=== PATIENT | male | born 1955 | race Caucasian/White ===

== ENCOUNTER → 2016-12-27 | Outpatient (CLI) | payer MEDICARE, OTHER ==
[~2016-12-27] MED LIST: AMLO-512 PO; ASPI-556 PO; ATOR40TA28 PO; DEXT30DR5 OP; FOLI1 PO; GABA-531 PO; HYDR25 PO; HYDR25TA PO; INSLAN SQ; INSU100C6 SQ; LISI-662 PO; METF500T4 PO; MULT-959 PO; PENI500T2 PO; TIMO5DRO35 OS; TRAM50TA4 PO; VITA-300 PO; [UNRECOGNIZED DRUG - OTHER] PO
[2016-12-27 10:34] VITALS: BP 99/66
== END | disposition home or self-care (01) ==
LOC: HBOWC 10:01
PROVIDERS: ATTEND Emergency Medicine
DX: E11.621 Type 2 diabetes mellitus with foot ulcer (principal); L97.411 Non-pressure chronic ulcer of right heel and midfoot limited to breakdown of skin; E11.622 Type 2 diabetes mellitus with other skin ulcer; L97.921 Non-pressure chronic ulcer of unspecified part of left lower leg limited to breakdown of skin; E11.51 Type 2 diabetes mellitus with diabetic peripheral angiopathy without gangrene; I12.9 Hypertensive chronic kidney disease with stage 1 through stage 4 chronic kidney disease, or unspecified chronic kidney disease; N18.4 Chronic kidney disease, stage 4 (severe); E11.69 Type 2 diabetes mellitus with other specified complication; M86.8X7 Other osteomyelitis, ankle and foot
CPT/HCPCS: 97597

== ENCOUNTER → 2017-02-02 | Outpatient (CLI) | payer MEDICARE, OTHER ==
[2017-02-02 12:35] VITALS: BP 147/77
== END | disposition home or self-care (01) ==
LOC: HBOWC 11:00
PROVIDERS: ATTEND Emergency Medicine
DX: E11.621 Type 2 diabetes mellitus with foot ulcer (principal); L97.411 Non-pressure chronic ulcer of right heel and midfoot limited to breakdown of skin; E11.69 Type 2 diabetes mellitus with other specified complication; M86.8X7 Other osteomyelitis, ankle and foot; E11.65 Type 2 diabetes mellitus with hyperglycemia; I10 Essential (primary) hypertension; E11.22 Type 2 diabetes mellitus with diabetic chronic kidney disease; I12.9 Hypertensive chronic kidney disease with stage 1 through stage 4 chronic kidney disease, or unspecified chronic kidney disease; N18.9 Chronic kidney disease, unspecified; E11.51 Type 2 diabetes mellitus with diabetic peripheral angiopathy without gangrene
CPT/HCPCS: 97597

== ENCOUNTER → 2017-02-17 | Outpatient (CLI) | payer MEDICARE, OTHER ==
[2017-02-17 11:33] VITALS: BP 114/56
== END | disposition home or self-care (01) ==
LOC: HBOWC 11:07
PROVIDERS: ATTEND Emergency Medicine
DX: E11.621 Type 2 diabetes mellitus with foot ulcer (principal); L97.411 Non-pressure chronic ulcer of right heel and midfoot limited to breakdown of skin; E11.69 Type 2 diabetes mellitus with other specified complication; M86.671 Other chronic osteomyelitis, right ankle and foot; I12.9 Hypertensive chronic kidney disease with stage 1 through stage 4 chronic kidney disease, or unspecified chronic kidney disease; E11.22 Type 2 diabetes mellitus with diabetic chronic kidney disease; E11.51 Type 2 diabetes mellitus with diabetic peripheral angiopathy without gangrene; N18.4 Chronic kidney disease, stage 4 (severe)
CPT/HCPCS: 97597

== ENCOUNTER → 2017-03-03 | Outpatient (CLI) | payer MEDICARE, OTHER ==
[~2017-03-03] MED LIST changes: -HYDR25 PO; +HYDR25TA84 PO
[2017-03-03 11:14] VITALS: BP 111/56
== END | disposition home or self-care (01) ==
LOC: HBOWC 10:54
PROVIDERS: ATTEND Emergency Medicine
DX: E11.621 Type 2 diabetes mellitus with foot ulcer (principal); L97.411 Non-pressure chronic ulcer of right heel and midfoot limited to breakdown of skin; E11.69 Type 2 diabetes mellitus with other specified complication; M86.671 Other chronic osteomyelitis, right ankle and foot; E11.22 Type 2 diabetes mellitus with diabetic chronic kidney disease; I12.9 Hypertensive chronic kidney disease with stage 1 through stage 4 chronic kidney disease, or unspecified chronic kidney disease; N18.4 Chronic kidney disease, stage 4 (severe); E11.51 Type 2 diabetes mellitus with diabetic peripheral angiopathy without gangrene
CPT/HCPCS: 97597

== ENCOUNTER → 2017-03-28 | Outpatient (CLI) | payer MEDICARE, OTHER ==
[2017-03-28 11:06] VITALS: BP 152/93
== END | disposition home or self-care (01) ==
LOC: HBOWC 10:48
PROVIDERS: ATTEND Emergency Medicine
DX: E11.621 Type 2 diabetes mellitus with foot ulcer (principal); L97.511 Non-pressure chronic ulcer of other part of right foot limited to breakdown of skin; E11.69 Type 2 diabetes mellitus with other specified complication; M86.671 Other chronic osteomyelitis, right ankle and foot; E11.51 Type 2 diabetes mellitus with diabetic peripheral angiopathy without gangrene; E11.22 Type 2 diabetes mellitus with diabetic chronic kidney disease; I12.9 Hypertensive chronic kidney disease with stage 1 through stage 4 chronic kidney disease, or unspecified chronic kidney disease; N18.4 Chronic kidney disease, stage 4 (severe)
CPT/HCPCS: 97597

== ENCOUNTER → 2017-04-11 | Outpatient (CLI) | payer MEDICARE, OTHER ==
[2017-04-11 12:18] VITALS: BP 161/94
== END | disposition home or self-care (01) ==
LOC: HBOWC 10:50
PROVIDERS: ATTEND Emergency Medicine
DX: E11.621 Type 2 diabetes mellitus with foot ulcer (principal); L97.511 Non-pressure chronic ulcer of other part of right foot limited to breakdown of skin; E11.69 Type 2 diabetes mellitus with other specified complication; M86.671 Other chronic osteomyelitis, right ankle and foot; E11.22 Type 2 diabetes mellitus with diabetic chronic kidney disease; I12.9 Hypertensive chronic kidney disease with stage 1 through stage 4 chronic kidney disease, or unspecified chronic kidney disease; N18.4 Chronic kidney disease, stage 4 (severe); E11.51 Type 2 diabetes mellitus with diabetic peripheral angiopathy without gangrene
CPT/HCPCS: 97597

== ENCOUNTER → 2017-04-26 | Outpatient (CLI) | payer MEDICARE, OTHER ==
[2017-04-26 11:38] VITALS: BP 165/92
[2017-04-26 12:13] VITALS: BP 158/86
== END | disposition home or self-care (01) ==
LOC: HBOWC 11:31
PROVIDERS: ATTEND Emergency Medicine Undersea and Hyperbaric Medicine
DX: E11.621 Type 2 diabetes mellitus with foot ulcer (principal); L97.412 Non-pressure chronic ulcer of right heel and midfoot with fat layer exposed; E11.51 Type 2 diabetes mellitus with diabetic peripheral angiopathy without gangrene; E11.69 Type 2 diabetes mellitus with other specified complication; M86.8X7 Other osteomyelitis, ankle and foot; E11.22 Type 2 diabetes mellitus with diabetic chronic kidney disease; I12.9 Hypertensive chronic kidney disease with stage 1 through stage 4 chronic kidney disease, or unspecified chronic kidney disease; N18.4 Chronic kidney disease, stage 4 (severe)
CPT/HCPCS: 97597

== ENCOUNTER → 2017-05-10 | Outpatient (CLI) | payer MEDICARE, OTHER ==
[~2017-05-10] MED LIST changes: +HYDR25 PO; -HYDR25TA84 PO
[2017-05-10 14:24] VITALS: BP 120/62
== END | disposition home or self-care (01) ==
LOC: HBOWC 11:00
PROVIDERS: ATTEND Emergency Medicine
DX: E11.621 Type 2 diabetes mellitus with foot ulcer (principal); L97.412 Non-pressure chronic ulcer of right heel and midfoot with fat layer exposed; E11.51 Type 2 diabetes mellitus with diabetic peripheral angiopathy without gangrene; E11.22 Type 2 diabetes mellitus with diabetic chronic kidney disease; I12.9 Hypertensive chronic kidney disease with stage 1 through stage 4 chronic kidney disease, or unspecified chronic kidney disease; N18.4 Chronic kidney disease, stage 4 (severe); E11.69 Type 2 diabetes mellitus with other specified complication; M86.8X7 Other osteomyelitis, ankle and foot
CPT/HCPCS: 97597

== ENCOUNTER → 2017-05-24 | Outpatient (CLI) | payer MEDICARE, OTHER ==
[~2017-05-24] MED LIST changes: -HYDR25 PO; +HYDR25TA84 PO
[2017-05-24 11:57] VITALS: BP 152/82
== END | disposition home or self-care (01) ==
LOC: HBOWC 11:18
PROVIDERS: ATTEND Emergency Medicine
DX: E11.621 Type 2 diabetes mellitus with foot ulcer (principal); L97.421 Non-pressure chronic ulcer of left heel and midfoot limited to breakdown of skin; L97.411 Non-pressure chronic ulcer of right heel and midfoot limited to breakdown of skin; E11.51 Type 2 diabetes mellitus with diabetic peripheral angiopathy without gangrene; E11.69 Type 2 diabetes mellitus with other specified complication; M86.671 Other chronic osteomyelitis, right ankle and foot; E11.22 Type 2 diabetes mellitus with diabetic chronic kidney disease; I12.9 Hypertensive chronic kidney disease with stage 1 through stage 4 chronic kidney disease, or unspecified chronic kidney disease; N18.4 Chronic kidney disease, stage 4 (severe)
CPT/HCPCS: 97597

== ENCOUNTER → 2017-06-07 | Outpatient (CLI) | payer MEDICARE, OTHER ==
[~2017-06-07] MED LIST changes: +LIDOCAINE HCL 2% 5 ML JELLY TP ONE
[2017-06-07 12:20] VITALS: BP 162/91
== END | disposition home or self-care (01) ==
LOC: HBOWC 10:50
PROVIDERS: ATTEND Emergency Medicine
DX: E11.621 Type 2 diabetes mellitus with foot ulcer (principal); L97.411 Non-pressure chronic ulcer of right heel and midfoot limited to breakdown of skin; E11.69 Type 2 diabetes mellitus with other specified complication; E11.622 Type 2 diabetes mellitus with other skin ulcer; L97.321 Non-pressure chronic ulcer of left ankle limited to breakdown of skin; E11.22 Type 2 diabetes mellitus with diabetic chronic kidney disease; I12.9 Hypertensive chronic kidney disease with stage 1 through stage 4 chronic kidney disease, or unspecified chronic kidney disease; N18.4 Chronic kidney disease, stage 4 (severe); M86.671 Other chronic osteomyelitis, right ankle and foot; E11.51 Type 2 diabetes mellitus with diabetic peripheral angiopathy without gangrene
CPT/HCPCS: 97597

== ENCOUNTER → 2017-06-28 | Outpatient (CLI) | payer MEDICARE, OTHER ==
[~2017-06-28] MED LIST changes: +NYSTATIN 15 GM POWDER BOTTLE TP ONE
[2017-06-28 12:04] VITALS: BP 171/90
== END | disposition home or self-care (01) ==
LOC: HBOWC 11:28
PROVIDERS: ATTEND Emergency Medicine
DX: E11.621 Type 2 diabetes mellitus with foot ulcer (principal); L97.412 Non-pressure chronic ulcer of right heel and midfoot with fat layer exposed; E11.622 Type 2 diabetes mellitus with other skin ulcer; L97.321 Non-pressure chronic ulcer of left ankle limited to breakdown of skin; E11.22 Type 2 diabetes mellitus with diabetic chronic kidney disease; I12.9 Hypertensive chronic kidney disease with stage 1 through stage 4 chronic kidney disease, or unspecified chronic kidney disease; N18.4 Chronic kidney disease, stage 4 (severe); E11.69 Type 2 diabetes mellitus with other specified complication; M86.671 Other chronic osteomyelitis, right ankle and foot; E11.51 Type 2 diabetes mellitus with diabetic peripheral angiopathy without gangrene
CPT/HCPCS: 97597

== ENCOUNTER → 2017-10-19 | Outpatient (CLI) | payer MEDICARE, OTHER ==
[~2017-10-19] VITALS: Ht 188 cm; Wt 67.0 kg
[~2017-10-19] MED LIST changes: +ACET-784 PO; +AMLO2.5T PO; +ATOR20TA86 PO; +AUD NEB; +CEPH500 PO; +DOXY100C PO; +DSS100 PO; +FURO20 PO; +GABA-529 PO; +LORA1TAB3 PO; +LUBI24CA2 PO; -NYSTATIN 15 GM POWDER BOTTLE TP ONE; +ONDA4 PO; +PANT40TA25 PO; +PYRI50 PO; +TAMS0.4C32 PO; +[UNRECOGNIZED DRUG - CODE] SQ
[2017-10-19 10:42] VITALS: BP 156/90
== END | disposition home or self-care (01) ==
LOC: HBOWC 09:06
PROVIDERS: ATTEND Internal Medicine
DX: E11.621 Type 2 diabetes mellitus with foot ulcer (principal); L97.411 Non-pressure chronic ulcer of right heel and midfoot limited to breakdown of skin; L97.421 Non-pressure chronic ulcer of left heel and midfoot limited to breakdown of skin; E11.622 Type 2 diabetes mellitus with other skin ulcer; L97.821 Non-pressure chronic ulcer of other part of left lower leg limited to breakdown of skin; L97.811 Non-pressure chronic ulcer of other part of right lower leg limited to breakdown of skin; E11.51 Type 2 diabetes mellitus with diabetic peripheral angiopathy without gangrene; E11.22 Type 2 diabetes mellitus with diabetic chronic kidney disease; I13.0 Hypertensive heart and chronic kidney disease with heart failure and stage 1 through stage 4 chronic kidney disease, or unspecified chronic kidney disease; N18.4 Chronic kidney disease, stage 4 (severe); I50.9 Heart failure, unspecified; J44.9 Chronic obstructive pulmonary disease, unspecified; E11.69 Type 2 diabetes mellitus with other specified complication; M86.671 Other chronic osteomyelitis, right ankle and foot; E78.00 Pure hypercholesterolemia, unspecified; H54.7 Unspecified visual loss; Z79.4 Long term (current) use of insulin; Z99.2 Dependence on renal dialysis
CPT/HCPCS: 11042

== ENCOUNTER → 2017-10-26 | Outpatient (CLI) | payer MEDICARE, OTHER ==
[~2017-10-26] MED LIST changes: -AMLO-512 PO; -ASPI-556 PO; -ATOR40TA28 PO; -CEPH500 PO; -DEXT30DR5 OP; -DOXY100C PO; -GABA-531 PO; -HYDR25TA84 PO; -LISI-662 PO; -METF500T4 PO; -PENI500T2 PO; -TIMO5DRO35 OS; -TRAM50TA4 PO; -[UNRECOGNIZED DRUG - OTHER] PO
[2017-10-26 13:36] VITALS: BP 186/90
[2017-10-26 14:12] VITALS: BP 188/96
== END | disposition home or self-care (01) ==
LOC: HBOWC 11:57
PROVIDERS: ATTEND Internal Medicine
DX: T81.89XD Other complications of procedures, not elsewhere classified, subsequent encounter (principal); E11.621 Type 2 diabetes mellitus with foot ulcer; L97.411 Non-pressure chronic ulcer of right heel and midfoot limited to breakdown of skin; E11.51 Type 2 diabetes mellitus with diabetic peripheral angiopathy without gangrene; E11.22 Type 2 diabetes mellitus with diabetic chronic kidney disease; I12.9 Hypertensive chronic kidney disease with stage 1 through stage 4 chronic kidney disease, or unspecified chronic kidney disease; N18.4 Chronic kidney disease, stage 4 (severe); E11.69 Type 2 diabetes mellitus with other specified complication; M86.671 Other chronic osteomyelitis, right ankle and foot; Z86.14 Personal history of Methicillin resistant Staphylococcus aureus infection; Y83.8 Other surgical procedures as the cause of abnormal reaction of the patient, or of later complication, without mention of misadventure at the time of the procedure
CPT/HCPCS: 11042

== ENCOUNTER → 2017-11-02 | Outpatient (CLI) | payer MEDICARE, OTHER ==
[~2017-11-02] MED LIST changes: +CEPH500 PO; +DOXY100C PO; -LIDOCAINE HCL 2% 5 ML JELLY TP ONE
[2017-11-02 10:00] VITALS: BP 191/99
[2017-11-02 10:30] VITALS: BP 182/99
== END | disposition home or self-care (01) ==
LOC: HBOWC 09:14
PROVIDERS: ATTEND Internal Medicine
DX: T81.89XD Other complications of procedures, not elsewhere classified, subsequent encounter (principal); E11.621 Type 2 diabetes mellitus with foot ulcer; L97.421 Non-pressure chronic ulcer of left heel and midfoot limited to breakdown of skin; E11.622 Type 2 diabetes mellitus with other skin ulcer; L97.811 Non-pressure chronic ulcer of other part of right lower leg limited to breakdown of skin; L97.822 Non-pressure chronic ulcer of other part of left lower leg with fat layer exposed; E11.52 Type 2 diabetes mellitus with diabetic peripheral angiopathy with gangrene; E11.319 Type 2 diabetes mellitus with unspecified diabetic retinopathy without macular edema; J44.9 Chronic obstructive pulmonary disease, unspecified; E11.22 Type 2 diabetes mellitus with diabetic chronic kidney disease; I13.0 Hypertensive heart and chronic kidney disease with heart failure and stage 1 through stage 4 chronic kidney disease, or unspecified chronic kidney disease; N18.4 Chronic kidney disease, stage 4 (severe); I50.9 Heart failure, unspecified; E11.69 Type 2 diabetes mellitus with other specified complication; M86.671 Other chronic osteomyelitis, right ankle and foot; E78.00 Pure hypercholesterolemia, unspecified; H54.7 Unspecified visual loss; Z79.4 Long term (current) use of insulin; Z99.2 Dependence on renal dialysis; Y83.8 Other surgical procedures as the cause of abnormal reaction of the patient, or of later complication, without mention of misadventure at the time of the procedure
CPT/HCPCS: 11042

== ENCOUNTER → 2017-11-16 | Outpatient (CLI) | payer MEDICARE, OTHER ==
[~2017-11-16] MED LIST changes: -CEPH500 PO; -DOXY100C PO
[2017-11-16 09:40] VITALS: BP 157/88
== END | disposition home or self-care (01) ==
LOC: HBOWC 09:01
PROVIDERS: ATTEND Internal Medicine
DX: E11.621 Type 2 diabetes mellitus with foot ulcer (principal); L97.411 Non-pressure chronic ulcer of right heel and midfoot limited to breakdown of skin; L97.421 Non-pressure chronic ulcer of left heel and midfoot limited to breakdown of skin; E11.622 Type 2 diabetes mellitus with other skin ulcer; L97.821 Non-pressure chronic ulcer of other part of left lower leg limited to breakdown of skin; L97.811 Non-pressure chronic ulcer of other part of right lower leg limited to breakdown of skin; E11.69 Type 2 diabetes mellitus with other specified complication; M86.671 Other chronic osteomyelitis, right ankle and foot; E11.51 Type 2 diabetes mellitus with diabetic peripheral angiopathy without gangrene; E11.22 Type 2 diabetes mellitus with diabetic chronic kidney disease; I12.9 Hypertensive chronic kidney disease with stage 1 through stage 4 chronic kidney disease, or unspecified chronic kidney disease; N18.4 Chronic kidney disease, stage 4 (severe); H54.7 Unspecified visual loss; D64.9 Anemia, unspecified
CPT/HCPCS: 11042; 97597; 97598

== ENCOUNTER → 2017-11-23 | Outpatient (CLI) | payer MEDICARE, OTHER ==
[2017-11-23 09:11] VITALS: BP 196/97
== END | disposition home or self-care (01) ==
LOC: HBOWC 08:40
PROVIDERS: ATTEND Internal Medicine
DX: E11.621 Type 2 diabetes mellitus with foot ulcer (principal); L97.421 Non-pressure chronic ulcer of left heel and midfoot limited to breakdown of skin; E11.622 Type 2 diabetes mellitus with other skin ulcer; E11.51 Type 2 diabetes mellitus with diabetic peripheral angiopathy without gangrene; L97.821 Non-pressure chronic ulcer of other part of left lower leg limited to breakdown of skin; L97.811 Non-pressure chronic ulcer of other part of right lower leg limited to breakdown of skin; E11.22 Type 2 diabetes mellitus with diabetic chronic kidney disease; I12.9 Hypertensive chronic kidney disease with stage 1 through stage 4 chronic kidney disease, or unspecified chronic kidney disease; N18.4 Chronic kidney disease, stage 4 (severe); E11.69 Type 2 diabetes mellitus with other specified complication; M86.671 Other chronic osteomyelitis, right ankle and foot
CPT/HCPCS: 11042; 11045

== ENCOUNTER → 2017-11-30 | Outpatient (CLI) | payer MEDICARE, OTHER ==
[~2017-11-30] MED LIST changes: +LIDOCAINE HCL 2% 5 ML JELLY TP ONE
[2017-11-30 14:00] VITALS: BP 158/84
== END | disposition home or self-care (01) ==
LOC: HBOWC 13:05
PROVIDERS: ATTEND Internal Medicine
DX: E11.622 Type 2 diabetes mellitus with other skin ulcer (principal); L97.821 Non-pressure chronic ulcer of other part of left lower leg limited to breakdown of skin; L97.811 Non-pressure chronic ulcer of other part of right lower leg limited to breakdown of skin; J44.9 Chronic obstructive pulmonary disease, unspecified; E11.51 Type 2 diabetes mellitus with diabetic peripheral angiopathy without gangrene; E11.69 Type 2 diabetes mellitus with other specified complication; M86.68 Other chronic osteomyelitis, other site
CPT/HCPCS: 11042; 11045

== ENCOUNTER 2017-12-14 11:39 | Emergency (ER) | payer MEDICARE, OTHER ==
[~2017-12-14] VITALS: Ht 188 cm; Wt 78.6 kg
[~2017-12-14 11:39] MED LIST changes: -LIDOCAINE HCL 2% 5 ML JELLY TP ONE
[2017-12-14 12:28] LABS: GLUCOSE,POINT OF CARE 118 MG/DL (70-110)
[2017-12-14 15:10] LABS: BASOPHILS # (AUTO) 0.04 K/uL (0.00-0.20); BASOPHILS % (AUTO) 0.3 % (0.0-2.0); EOSINOPHILS % (AUTO) 0.77 % (1.0-6.0); HEMATOCRIT 30.8 % (41-53); HEMOGLOBIN 10.2 g/dL (13.5-17.5); LYMPHOCYTES # (AUTO) 1.3 K/uL (1.0-4.8); LYMPHOCYTES % (AUTO) 9.9 % (22.0-44.0); MEAN CORPUSCULAR HEMOGLOBIN 27.3 pg (26.0-34.0); MEAN CORPUSCULAR VOLUME 83 fL (80-100); MONOCYTES # (AUTO) 1.1 K/uL (0.1-1.0); MONOCYTES % (AUTO) 8.1 % (2.0-9.0); NEUTROPHILS # (AUTO) 10.9 K/uL (1.8-7.7); PLATELET COUNT (AUTO) 301 K/uL (150-450); RED BLOOD CELL COUNT(AUTO) 3.73 MIL/uL (4.50-5.90); RED CELL DISTRIBUTION WIDTH 16.2 % (11.5-14.5)
[2017-12-14 15:22] LABS: CALCIUM, TOTAL 8.2 mg/dL (8.8-10.5); CREATININE 3.6 mg/dL (0.60-1.30); POTASSIUM 3.6 mmol/L (3.5-5.1)
[2017-12-14 15:25] LABS: ALBUMIN 1.7 g/dL (3.4-5.0); BILIRUBIN,TOTAL 0.3 mg/dL (0.1-1.0); TOTAL PROTEIN, SERUM 6.9 g/dL (6.4-8.2)
[2017-12-14] MEDS ORDERED: SULFAMETHOX/TRIMETH DS 800-160 MG/TABLET PO ONE (15:30)
[2017-12-14] MEDS ORDERED: CeFAZolin 1 GM/DEXTROSE 50 ML IV ONE (15:30)
[2017-12-14 16:00] VITALS: BP 122/78
== END 2017-12-14 17:37 | disposition home or self-care (01) ==
LOC: EMS 11:41
DX: S91.302D Unspecified open wound, left foot, subsequent encounter (principal); L08.9 Local infection of the skin and subcutaneous tissue, unspecified; L03.116 Cellulitis of left lower limb; I12.9 Hypertensive chronic kidney disease with stage 1 through stage 4 chronic kidney disease, or unspecified chronic kidney disease; E11.22 Type 2 diabetes mellitus with diabetic chronic kidney disease; N18.9 Chronic kidney disease, unspecified; E78.00 Pure hypercholesterolemia, unspecified; Z79.4 Long term (current) use of insulin; X58.XXXD Exposure to other specified factors, subsequent encounter
CPT/HCPCS: 36415; 80053; 82962; 85025; 87070; 87077; 87186; 87205; 96365; 99284; J0690

== ENCOUNTER → 2017-12-14 | Outpatient (CLI) | payer MEDICARE, OTHER ==
[2017-12-14 10:13] VITALS: BP 159/90
== END | disposition home or self-care (01) ==
LOC: HBOWC 09:35
PROVIDERS: ATTEND Internal Medicine
DX: E11.621 Type 2 diabetes mellitus with foot ulcer (principal); L97.411 Non-pressure chronic ulcer of right heel and midfoot limited to breakdown of skin; L97.421 Non-pressure chronic ulcer of left heel and midfoot limited to breakdown of skin; L89.629 Pressure ulcer of left heel, unspecified stage; J44.9 Chronic obstructive pulmonary disease, unspecified; E11.69 Type 2 diabetes mellitus with other specified complication; M86.671 Other chronic osteomyelitis, right ankle and foot; M86.68 Other chronic osteomyelitis, other site; E11.51 Type 2 diabetes mellitus with diabetic peripheral angiopathy without gangrene; E11.22 Type 2 diabetes mellitus with diabetic chronic kidney disease; I12.9 Hypertensive chronic kidney disease with stage 1 through stage 4 chronic kidney disease, or unspecified chronic kidney disease; N18.4 Chronic kidney disease, stage 4 (severe)
CPT/HCPCS: 11042; 11045

== ENCOUNTER → 2017-12-28 | Outpatient (CLI) | payer MEDICARE, OTHER ==
[~2017-12-28] MED LIST changes: +CEPH500 PO; +DOXY100C PO; +LIDOCAINE HCL 4% 50 ML SOLUTION TP ONE
[2017-12-28 11:31] VITALS: BP 179/90
== END | disposition home or self-care (01) ==
LOC: HBOWC 09:19
PROVIDERS: ATTEND Internal Medicine
DX: E11.622 Type 2 diabetes mellitus with other skin ulcer (principal); L97.821 Non-pressure chronic ulcer of other part of left lower leg limited to breakdown of skin; L97.811 Non-pressure chronic ulcer of other part of right lower leg limited to breakdown of skin; L97.421 Non-pressure chronic ulcer of left heel and midfoot limited to breakdown of skin; E11.22 Type 2 diabetes mellitus with diabetic chronic kidney disease; E11.51 Type 2 diabetes mellitus with diabetic peripheral angiopathy without gangrene; I12.9 Hypertensive chronic kidney disease with stage 1 through stage 4 chronic kidney disease, or unspecified chronic kidney disease; N18.4 Chronic kidney disease, stage 4 (severe); J44.9 Chronic obstructive pulmonary disease, unspecified; E11.69 Type 2 diabetes mellitus with other specified complication; M86.671 Other chronic osteomyelitis, right ankle and foot; E78.00 Pure hypercholesterolemia, unspecified; Z79.4 Long term (current) use of insulin
CPT/HCPCS: 11042; 11045; 97597

== ENCOUNTER → 2018-01-04 | Outpatient (CLI) | payer MEDICARE, OTHER ==
[~2018-01-04] MED LIST changes: +LIDOCAINE HCL 2% 5 ML JELLY TP ONE; -LIDOCAINE HCL 4% 50 ML SOLUTION TP ONE
[2018-01-04 08:55] VITALS: BP 182/90
[2018-01-04 15:52] LABS: BASOPHILS % (AUTO) 0.8 % (0.0-2.0); HEMATOCRIT 29.5 % (41-53); HEMOGLOBIN 9.9 g/dL (13.5-17.5); LYMPHOCYTES # (AUTO) 1.6 K/uL (1.0-4.8); MEAN CORPUSCULAR HEMOGLOBIN 26.5 pg (26.0-34.0); MEAN CORPUSCULAR HGB CONC 33.7 G/dL (31.0-37.0); MEAN CORPUSCULAR VOLUME 79 fL (80-100); MONOCYTES # (AUTO) 0.9 K/uL (0.1-1.0); MONOCYTES % (AUTO) 7.7 % (2.0-9.0); NEUTROPHILS # (AUTO) 9.3 K/uL (1.8-7.7); NEUTROPHILS % (AUTO) 76.5 % (40.0-70.0); PLATELET COUNT (AUTO) 342 K/uL (150-450); RED BLOOD CELL COUNT(AUTO) 3.75 MIL/uL (4.50-5.90); RED CELL DISTRIBUTION WIDTH 15.8 % (11.5-14.5)
[2018-01-04 16:03] LABS: C-REACTIVE PROTEIN QUANT 6.6 mg/dL (0.00-0.30)
[2018-01-04 16:08] LABS: HEMOGLOBIN A1C 7.2 % (4.5-6.2)
[2018-01-04 16:51] LABS: ERYTHROCYTE SEDIMENTATION RATE 132 MM/HR (0-15)
== END | disposition home or self-care (01) ==
LOC: HBOWC 08:10
PROVIDERS: ATTEND Internal Medicine
DX: E11.621 Type 2 diabetes mellitus with foot ulcer (principal); L97.421 Non-pressure chronic ulcer of left heel and midfoot limited to breakdown of skin; L97.411 Non-pressure chronic ulcer of right heel and midfoot limited to breakdown of skin; E11.622 Type 2 diabetes mellitus with other skin ulcer; L97.821 Non-pressure chronic ulcer of other part of left lower leg limited to breakdown of skin; L97.811 Non-pressure chronic ulcer of other part of right lower leg limited to breakdown of skin; E11.51 Type 2 diabetes mellitus with diabetic peripheral angiopathy without gangrene; E11.22 Type 2 diabetes mellitus with diabetic chronic kidney disease; I13.0 Hypertensive heart and chronic kidney disease with heart failure and stage 1 through stage 4 chronic kidney disease, or unspecified chronic kidney disease; N18.4 Chronic kidney disease, stage 4 (severe); I50.9 Heart failure, unspecified; E11.69 Type 2 diabetes mellitus with other specified complication; M86.671 Other chronic osteomyelitis, right ankle and foot; E78.00 Pure hypercholesterolemia, unspecified; Z79.4 Long term (current) use of insulin
CPT/HCPCS: 11042; 11045; 73718; 73721; 83036; 85651; 86140; 87070; 87205; 97597

== ENCOUNTER → 2018-01-11 | Outpatient (CLI) | payer MEDICARE, OTHER ==
[~2018-01-11] MED LIST changes: +AMLO-512 PO; +ASPI-556 PO; +ATOR40TA28 PO; +CHLORHEXIDINE GLUCONATE 4% 118 ML TOPICAL LIQUID TP ONE; +DEXT30DR5 OP; +GABA-531 PO; +HYDR25TA84 PO; +LISI-662 PO; +METF500T4 PO; +PENI500T2 PO; +TIMO5DRO35 OS; +TRAM50TA4 PO; +[UNRECOGNIZED DRUG - OTHER] PO
[2018-01-11 08:46] VITALS: BP 151/79
== END | disposition home or self-care (01) ==
LOC: HBOWC 08:13
PROVIDERS: ATTEND Internal Medicine
DX: E11.621 Type 2 diabetes mellitus with foot ulcer (principal); L97.421 Non-pressure chronic ulcer of left heel and midfoot limited to breakdown of skin; L97.411 Non-pressure chronic ulcer of right heel and midfoot limited to breakdown of skin; L97.811 Non-pressure chronic ulcer of other part of right lower leg limited to breakdown of skin; L97.821 Non-pressure chronic ulcer of other part of left lower leg limited to breakdown of skin; E11.51 Type 2 diabetes mellitus with diabetic peripheral angiopathy without gangrene; E11.22 Type 2 diabetes mellitus with diabetic chronic kidney disease; I13.0 Hypertensive heart and chronic kidney disease with heart failure and stage 1 through stage 4 chronic kidney disease, or unspecified chronic kidney disease; N18.4 Chronic kidney disease, stage 4 (severe); I50.9 Heart failure, unspecified; E11.69 Type 2 diabetes mellitus with other specified complication; M86.671 Other chronic osteomyelitis, right ankle and foot; E78.00 Pure hypercholesterolemia, unspecified; J44.9 Chronic obstructive pulmonary disease, unspecified; H54.7 Unspecified visual loss; Z99.2 Dependence on renal dialysis; Z79.4 Long term (current) use of insulin
CPT/HCPCS: 11042; 11045

== ENCOUNTER → 2018-02-01 | Outpatient (CLI) | payer MEDICARE, OTHER ==
[~2018-02-01] MED LIST changes: -AMLO-512 PO; +ASCO500 PO; -ASPI-556 PO; +ASPI81TA39 PO; -ATOR40TA28 PO; -CHLORHEXIDINE GLUCONATE 4% 118 ML TOPICAL LIQUID TP ONE; -DEXT30DR5 OP; +FERR-89 PO; -GABA-531 PO; -HYDR25TA84 PO; -LIDOCAINE HCL 2% 5 ML JELLY TP ONE; -LISI-662 PO; -METF500T4 PO; +OXYC-530 PO; -PENI500T2 PO; +PROZ10 PO; -TIMO5DRO35 OS; -TRAM50TA4 PO; +VANC750P8 IVPB; +ZINC220 PO; -[UNRECOGNIZED DRUG - OTHER] PO
[2018-02-01 08:40] VITALS: BP 160/90
== END | disposition home or self-care (01) ==
LOC: HBOWC 08:07
PROVIDERS: ATTEND Internal Medicine
DX: E11.621 Type 2 diabetes mellitus with foot ulcer (principal); L97.421 Non-pressure chronic ulcer of left heel and midfoot limited to breakdown of skin; E11.51 Type 2 diabetes mellitus with diabetic peripheral angiopathy without gangrene; E11.622 Type 2 diabetes mellitus with other skin ulcer; L97.821 Non-pressure chronic ulcer of other part of left lower leg limited to breakdown of skin; L97.811 Non-pressure chronic ulcer of other part of right lower leg limited to breakdown of skin; I25.10 Atherosclerotic heart disease of native coronary artery without angina pectoris; M17.0 Bilateral primary osteoarthritis of knee; E11.22 Type 2 diabetes mellitus with diabetic chronic kidney disease; I13.0 Hypertensive heart and chronic kidney disease with heart failure and stage 1 through stage 4 chronic kidney disease, or unspecified chronic kidney disease; N18.4 Chronic kidney disease, stage 4 (severe); I50.9 Heart failure, unspecified; E78.00 Pure hypercholesterolemia, unspecified; E11.40 Type 2 diabetes mellitus with diabetic neuropathy, unspecified; E46 Unspecified protein-calorie malnutrition; Z99.2 Dependence on renal dialysis; Z79.4 Long term (current) use of insulin
CPT/HCPCS: 11042; 11045

== ENCOUNTER → 2018-02-08 | Outpatient (CLI) | payer MEDICARE, OTHER ==
[~2018-02-08] MED LIST changes: -CEPH500 PO; -DOXY100C PO; -FOLI1 PO; -FURO20 PO; -GABA-529 PO; -HYDR25TA PO; +LIDOCAINE HCL 4% 50 ML SOLUTION TP ONE; -LORA1TAB3 PO; -LUBI24CA2 PO; -ONDA4 PO; -PANT40TA25 PO; -PYRI50 PO; -VITA-300 PO; -[UNRECOGNIZED DRUG - CODE] SQ
[2018-02-08 10:30] VITALS: BP 165/94
== END | disposition home or self-care (01) ==
LOC: HBOWC 08:28
PROVIDERS: ATTEND Internal Medicine
DX: E11.621 Type 2 diabetes mellitus with foot ulcer (principal); L97.421 Non-pressure chronic ulcer of left heel and midfoot limited to breakdown of skin; E11.622 Type 2 diabetes mellitus with other skin ulcer; L97.821 Non-pressure chronic ulcer of other part of left lower leg limited to breakdown of skin; L97.811 Non-pressure chronic ulcer of other part of right lower leg limited to breakdown of skin; L97.411 Non-pressure chronic ulcer of right heel and midfoot limited to breakdown of skin; E11.42 Type 2 diabetes mellitus with diabetic polyneuropathy; E11.51 Type 2 diabetes mellitus with diabetic peripheral angiopathy without gangrene; E11.65 Type 2 diabetes mellitus with hyperglycemia; I25.10 Atherosclerotic heart disease of native coronary artery without angina pectoris; M17.0 Bilateral primary osteoarthritis of knee; E11.22 Type 2 diabetes mellitus with diabetic chronic kidney disease; I13.0 Hypertensive heart and chronic kidney disease with heart failure and stage 1 through stage 4 chronic kidney disease, or unspecified chronic kidney disease; N18.4 Chronic kidney disease, stage 4 (severe); I50.9 Heart failure, unspecified; E78.00 Pure hypercholesterolemia, unspecified; E78.5 Hyperlipidemia, unspecified; J44.9 Chronic obstructive pulmonary disease, unspecified; Z99.2 Dependence on renal dialysis; Z79.4 Long term (current) use of insulin
CPT/HCPCS: 11042; 11045

== ENCOUNTER 2018-02-15 16:04 | Inpatient (IN) | payer MEDICARE, OTHER ==
[~2018-02-15] VITALS: Ht 188 cm; Wt 93.0 kg
[~2018-02-15 16:04] MED LIST changes: -LIDOCAINE HCL 4% 50 ML SOLUTION TP ONE
[2018-02-15 18:10] LABS: APPEARANCE,URINE CLEAR (CLEAR); BILIRUBIN,URINE NEGATIVE (NEGATIVE); GLUCOSE, URINE (UA) 250 mg/dL (NEGATIVE); KETONES,URINE TRACE mg/dL (NEGATIVE); LEUKOCYTE ESTERASE ,URINE NEGATIVE (NEGATIVE); NITRATE,URINE NEGATIVE (NEGATIVE); OCCULT BLOOD,URINE LARGE (NEGATIVE); PH,URINE 5.5 (5.0-8.0); PROTEIN,URINE SEE CONFIRM (NEGATIVE); UROBILINOGEN,URINE 0.2 mg/dL (<=1.0)
[2018-02-15 18:35] LABS: BASOPHILS % (AUTO) 0.9 % (0.0-2.0); EOSINOPHILS % (AUTO) 2.8 % (1.0-6.0); HEMATOCRIT 23.7 % (41-53); HEMOGLOBIN 8.1 g/dL (13.5-17.5); LYMPHOCYTES # (AUTO) 1.1 K/uL (1.0-4.8); LYMPHOCYTES % (AUTO) 12.7 % (22.0-44.0); MEAN CORPUSCULAR HEMOGLOBIN 28.5 pg (26.0-34.0); MEAN CORPUSCULAR VOLUME 84 fL (80-100); MONOCYTES # (AUTO) 0.7 K/uL (0.1-1.0); MONOCYTES % (AUTO) 8.2 % (2.0-9.0); NEUTROPHILS # (AUTO) 6.5 K/uL (1.8-7.7); NEUTROPHILS % (AUTO) 75.4 % (40.0-70.0); PLATELET COUNT (AUTO) 214 K/uL (150-450); RED BLOOD CELL COUNT(AUTO) 2.83 MIL/uL (4.50-5.90); RED CELL DISTRIBUTION WIDTH 20.4 % (11.5-14.5)
[2018-02-15 18:36] LABS: BACTERIA,URINE Few /HPF (None Seen); RBC,URINE 26-50 /HPF (0-2); SQUAMOUS EPITHELIAL CELL,UR Rare /LPF (None Seen); SULFOSALICYLIC ACID,URINE 3+ (Negative)
[2018-02-15 18:44] LABS: CALCIUM, TOTAL 8.6 mg/dL (8.8-10.5); CREATININE 3.35 mg/dL (0.60-1.30); POTASSIUM 4.5 mmol/L (3.5-5.1)
[2018-02-15 18:49] LABS: ALBUMIN 1.9 g/dL (3.4-5.0); BILIRUBIN,TOTAL 0.4 mg/dL (0.1-1.0); TOTAL PROTEIN, SERUM 6.4 g/dL (6.4-8.2)
[2018-02-15 18:52] LABS: LACTIC ACID 0.6 mmol/L (0.4-2.0)
[2018-02-15] MEDS ORDERED: ALTEPLASE 2 MG/VIAL IVCATH ONE (19:15)
[2018-02-15] MEDS ORDERED: 0.9% SODIUM CHLORIDE 10 ML SYRINGE IVP PRN (19:30)
[2018-02-15] MEDS ORDERED: ACETAMINOPHEN 325 MG TABLET PO PRN ×2 (19:30→21:45)
[2018-02-15] MEDS ORDERED: ONDANSETRON HCL 4 MG/2 ML VIAL IVP PRN (19:30)
[2018-02-15 19:33] LABS: C-REACTIVE PROTEIN QUANT 5.57 mg/dL (0.00-0.30)
[2018-02-15 19:48] LABS: ERYTHROCYTE SEDIMENTATION RATE 120 MM/HR (0-15)
[2018-02-15] MEDS ORDERED: DEXTROSE 50%-WATER 25 GM/50 ML SYRINGE IVP PRN (21:45)
[2018-02-15] MEDS ORDERED: ALBUTEROL SULFATE 2.5 MG/0.5 ML NEB SOLUTION NEB PRN (21:45)
[2018-02-15] MEDS ORDERED: MORPHINE SULFATE 4 MG/ML SYRINGE IVP PRN (21:45)
[2018-02-15] MEDS ORDERED: OxyCODONE HCL/ACETAMINOPHEN 5-325 MG TABLET PO PRN (21:45)
[2018-02-15] MEDS ORDERED: BISACODYL 10 MG RECTAL RECTAL SUPPOSITORY PR PRN (21:45)
[2018-02-15 22:53] VITALS: BP 171/97
[2018-02-15] MEDS ORDERED: VANCOMYCIN HCL 1 GM/D5% WATER 200 ML IV ONE (23:30)
[2018-02-15 23:39] VITALS: BP 157/87
[2018-02-15] MEDS ORDERED: SODIUM CHLORIDE 0.9% 500 ML IV ONE (23:50)
[2018-02-16 04:06] VITALS: BP 163/90
[2018-02-16 07:40] VITALS: BP 166/91
[2018-02-16] MEDS: DOCUSATE SODIUM 100 MG CAPSULE PO SCH ×2 (09:00→21:00)
[2018-02-16] MEDS ORDERED: AmLODIPine BESYLATE 5 MG TABLET PO SCH (09:00)
[2018-02-16] MEDS ORDERED: ASPIRIN 81 MG CHEWABLE TABLET PO SCH (09:00)
[2018-02-16] MEDS: FUROSEMIDE 20 MG/2 ML VIAL IVP SCH ×2 (09:10→22:22)
[2018-02-16] MEDS: PANTOPRAZOLE SODIUM 40 MG DR TABLET PO SCH (09:11)
[2018-02-16] MEDS: HEPARIN SODIUM,PORCINE 5,000 UNITS/ML VIAL SQ SCH ×2 (09:11→22:22)
[2018-02-16 11:13] VITALS: BP 175/94
[2018-02-16 14:04] LABS: GLUCOSE,POINT OF CARE 86 MG/DL (70-110)
[2018-02-16 14:08] LABS: GLUCOMETER DEV NAME(LOC) 5S 1M; GLUCOSE,POINT OF CARE 88 MG/DL (70-110)
[2018-02-16 14:12] LABS: GLUCOMETER DEV NAME(LOC) 5S 1M; GLUCOSE,POINT OF CARE 113 MG/DL (70-110)
[2018-02-16] MEDS ORDERED: INDIUM IN-111 OXYQUINOLINE/.5MCL ISOTOPE 1 EA INJ INJ ONE (15:00)
[2018-02-16] MEDS: NYSTATIN 30 GM CREAM TP SCH ×2 (15:14→22:25)
[2018-02-16 15:28] VITALS: BP 158/82
[2018-02-16] MEDS: INSULIN ASPART 100 UNITS/ML - NON-FORMULARY SQ PRN (18:12)
[2018-02-16 19:57] VITALS: BP 157/81
[2018-02-16] MEDS: INSULIN GLARGINE,HUM.REC.ANLOG 100 UNITS/ML SQ SCH (21:00)
[2018-02-16] MEDS ORDERED: ATORVASTATIN CALCIUM 20 MG TABLET PO SCH (21:00)
[2018-02-16] MEDS ORDERED: INSULIN GLARGINE,HUM.REC.ANLOG 100 UNITS/ML SQ SCH (21:00)
[2018-02-16] MEDS: ATORVASTATIN CALCIUM 20 MG TABLET PO SCH (22:22)
[2018-02-16] MEDS: TAMSULOSIN HCL 0.4 MG CAPSULE PO SCH (22:22)
[2018-02-17] VITALS (9 sets, daily range): BP systolic 152–186; BP diastolic 80–93
[2018-02-17] MEDS ORDERED: VANCOMYCIN HCL 1.5 GM in DEXTROSE 5%-WATER 250 ML IV SCH (08:00)
[2018-02-17] MEDS: FERROUS SULFATE 325 MG EC TABLET PO SCH (08:37)
[2018-02-17] MEDS: ASCORBIC ACID 500 MG TABLET PO SCH (08:38)
[2018-02-17] MEDS: ZINC SULFATE 220 MG CAPSULE PO SCH (08:40)
[2018-02-17] MEDS: ASPIRIN 81 MG CHEWABLE TABLET PO SCH (08:40)
[2018-02-17] MEDS: PANTOPRAZOLE SODIUM 40 MG DR TABLET PO SCH (08:41)
[2018-02-17] MEDS: DOCUSATE SODIUM 100 MG CAPSULE PO SCH ×2 (08:41→20:25)
[2018-02-17] MEDS: FUROSEMIDE 20 MG/2 ML VIAL IVP SCH ×2 (08:42→20:08)
[2018-02-17] MEDS: HEPARIN SODIUM,PORCINE 5,000 UNITS/ML VIAL SQ SCH ×2 (08:43→20:07)
[2018-02-17] MEDS: NYSTATIN 30 GM CREAM TP SCH ×3 (08:47→20:25)
[2018-02-17] MEDS ORDERED: AmLODIPine BESYLATE 2.5 MG TABLET PO SCH (09:00)
[2018-02-17] MEDS: FLUoxetine HCL 10 MG CAPSULE PO SCH (09:00)
[2018-02-17] MEDS ORDERED: ONDANSETRON HCL 4 MG TABLET PO PRN (09:00)
[2018-02-17] MEDS: ONDANSETRON HCL 4 MG/2 ML VIAL IVP PRN (10:46)
[2018-02-17] MEDS: VITAMIN B COMP/VIT C/FOLIC ACID CAPSULE PO SCH (10:46)
[2018-02-17 11:43] LABS: GLUCOMETER DEV NAME(LOC) 5S 1M; GLUCOSE,POINT OF CARE 117 MG/DL (70-110)
[2018-02-17] MEDS: INSULIN ASPART 100 UNITS/ML - NON-FORMULARY SQ PRN ×2 (12:10→20:13)
[2018-02-17 12:57] LABS: GLUCOMETER DEV NAME(LOC) 5N 1P; GLUCOSE,POINT OF CARE 169 MG/DL (70-110)
[2018-02-17 12:58] LABS: GLUCOMETER DEV NAME(LOC) 5N 1P; GLUCOSE,POINT OF CARE 167 MG/DL (70-110)
[2018-02-17 12:58] LABS: GLUCOMETER DEV NAME(LOC) 5N 1P; GLUCOSE,POINT OF CARE 130 MG/DL (70-110)
[2018-02-17] MEDS ORDERED: VANCOMYCIN HCL 1 GM/D5% WATER 200 ML IV PRN (13:15)
[2018-02-17] MEDS ORDERED: *CLINICAL-RX DOSING [ENTER DRUG IN COMMENTS] CLINICAL ONE (15:30)
[2018-02-17] MEDS: MEROPENEM 1 GM in SODIUM CHLORIDE 0.9% 100 ML IV SCH (16:36)
[2018-02-17] MEDS: HydrALAZINE HCL 25 MG TABLET PO SCH ×2 (16:36→20:07)
[2018-02-17 19:51] LABS: GLUCOMETER DEV NAME(LOC) 5N 1P; GLUCOSE,POINT OF CARE 141 MG/DL (70-110)
[2018-02-17] MEDS: TAMSULOSIN HCL 0.4 MG CAPSULE PO SCH (20:07)
[2018-02-17] MEDS: ATORVASTATIN CALCIUM 20 MG TABLET PO SCH (20:08)
[2018-02-17] MEDS: INSULIN GLARGINE,HUM.REC.ANLOG 100 UNITS/ML SQ SCH (20:16)
[2018-02-18 00:23] VITALS: BP 157/92
[2018-02-18] MEDS: MEROPENEM 1 GM in SODIUM CHLORIDE 0.9% 100 ML IV SCH (04:05)
[2018-02-18 05:05] VITALS: BP 161/89
[2018-02-18 06:44] LABS: EOSINOPHILS % (AUTO) 6.1 % (1.0-6.0); HEMATOCRIT 22.1 % (41-53); HEMOGLOBIN 7.3 g/dL (13.5-17.5); LYMPHOCYTES % (AUTO) 17.9 % (22.0-44.0); MEAN CORPUSCULAR HEMOGLOBIN 28.1 pg (26.0-34.0); MEAN CORPUSCULAR HGB CONC 33.2 G/dL (31.0-37.0); MEAN CORPUSCULAR VOLUME 85 fL (80-100); MONOCYTES # (AUTO) 0.6 K/uL (0.1-1.0); MONOCYTES % (AUTO) 11.7 % (2.0-9.0); NEUTROPHILS # (AUTO) 3.4 K/uL (1.8-7.7); NEUTROPHILS % (AUTO) 63.3 % (40.0-70.0); PLATELET COUNT (AUTO) 204 K/uL (150-450); RED BLOOD CELL COUNT(AUTO) 2.61 MIL/uL (4.50-5.90); RED CELL DISTRIBUTION WIDTH 20.4 % (11.5-14.5)
[2018-02-18 07:10] LABS: CREATININE 3.84 mg/dL (0.60-1.30)
[2018-02-18] MEDS: FERROUS SULFATE 325 MG EC TABLET PO SCH (08:45)
[2018-02-18 09:00] VITALS: BP 151/82
[2018-02-18] MEDS: FLUoxetine HCL 10 MG CAPSULE PO SCH (09:00)
[2018-02-18] MEDS ORDERED: AmLODIPine BESYLATE 5 MG TABLET PO SCH (09:00)
[2018-02-18 09:47] LABS: GLUCOMETER DEV NAME(LOC) 5S 1M; GLUCOSE,POINT OF CARE 120 MG/DL (70-110)
[2018-02-18 09:47] LABS: GLUCOMETER DEV NAME(LOC) 5S 1M; GLUCOSE,POINT OF CARE 181 MG/DL (70-110)
[2018-02-18] MEDS: PANTOPRAZOLE SODIUM 40 MG DR TABLET PO SCH (10:23)
[2018-02-18] MEDS: HydrALAZINE HCL 25 MG TABLET PO SCH ×2 (10:24→15:32)
[2018-02-18] MEDS: VITAMIN B COMP/VIT C/FOLIC ACID CAPSULE PO SCH (10:24)
[2018-02-18] MEDS: DOCUSATE SODIUM 100 MG CAPSULE PO SCH (10:24)
[2018-02-18] MEDS: ASCORBIC ACID 500 MG TABLET PO SCH (10:26)
[2018-02-18] MEDS: ZINC SULFATE 220 MG CAPSULE PO SCH (10:26)
[2018-02-18] MEDS: ASPIRIN 81 MG CHEWABLE TABLET PO SCH (10:26)
[2018-02-18] MEDS: FUROSEMIDE 20 MG/2 ML VIAL IVP SCH (10:27)
[2018-02-18] MEDS: NYSTATIN 30 GM CREAM TP SCH ×2 (10:28→15:33)
[2018-02-18] MEDS: HEPARIN SODIUM,PORCINE 5,000 UNITS/ML VIAL SQ SCH (10:34)
[2018-02-18] MEDS: ONDANSETRON HCL 4 MG/2 ML VIAL IVP PRN (10:37)
[2018-02-18 11:29] VITALS: BP 166/91
[2018-02-18 12:17] LABS: GLUCOMETER DEV NAME(LOC) 5N 1P; GLUCOSE,POINT OF CARE 166 MG/DL (70-110)
[2018-02-18] MEDS: INSULIN ASPART 100 UNITS/ML - NON-FORMULARY SQ PRN (12:43)
[2018-02-18 15:46] VITALS: BP 161/98
[2018-02-18] MEDS ORDERED: MEROPENEM 500 MG in SODIUM CHLORIDE 0.9% 50 ML IV SCH (21:00)
== END 2018-02-18 16:30 | DRG 729 ==
LOC: EMS 16:13 → 5S 19:52
PROVIDERS: ADMIT Internal Medicine; ATTEND Internal Medicine
DX: N43.3 Hydrocele, unspecified (principal); N17.9 Acute kidney failure, unspecified; E11.21 Type 2 diabetes mellitus with diabetic nephropathy; N18.4 Chronic kidney disease, stage 4 (severe); E11.69 Type 2 diabetes mellitus with other specified complication; E11.319 Type 2 diabetes mellitus with unspecified diabetic retinopathy without macular edema; M86.9 Osteomyelitis, unspecified; N39.0 Urinary tract infection, site not specified; E11.65 Type 2 diabetes mellitus with hyperglycemia; N50.89 Other specified disorders of the male genital organs; I73.9 Peripheral vascular disease, unspecified; B96.5 Pseudomonas (aeruginosa) (mallei) (pseudomallei) as the cause of diseases classified elsewhere; D64.9 Anemia, unspecified; E78.00 Pure hypercholesterolemia, unspecified; I10 Essential (primary) hypertension; Z79.4 Long term (current) use of insulin; Z91.19 Patient's noncompliance with other medical treatment and regimen
CPT/HCPCS: 76870; 78806; 82962; 83605; 85651; 86140; 86850; 86900; 86901; 87040; 87081; 87086; A9547; J1644; J1815; J1940; J2185; J2405; J2997; J3370; J7040; J7050; J7060

== ENCOUNTER → 2018-02-22 | Outpatient (CLI) | payer MEDICARE, OTHER ==
[~2018-02-22] MED LIST changes: +LIDOCAINE HCL 2% 5 ML JELLY TP ONE
[2018-02-22 08:50] VITALS: BP 179/91
== END | disposition home or self-care (01) ==
LOC: HBOWC 08:24
PROVIDERS: ATTEND Internal Medicine
DX: E11.621 Type 2 diabetes mellitus with foot ulcer (principal); L97.421 Non-pressure chronic ulcer of left heel and midfoot limited to breakdown of skin; E11.622 Type 2 diabetes mellitus with other skin ulcer; L97.811 Non-pressure chronic ulcer of other part of right lower leg limited to breakdown of skin; L97.821 Non-pressure chronic ulcer of other part of left lower leg limited to breakdown of skin; E11.51 Type 2 diabetes mellitus with diabetic peripheral angiopathy without gangrene; E11.22 Type 2 diabetes mellitus with diabetic chronic kidney disease; I12.9 Hypertensive chronic kidney disease with stage 1 through stage 4 chronic kidney disease, or unspecified chronic kidney disease; N18.4 Chronic kidney disease, stage 4 (severe); E11.69 Type 2 diabetes mellitus with other specified complication; M86.671 Other chronic osteomyelitis, right ankle and foot; E78.00 Pure hypercholesterolemia, unspecified; E11.21 Type 2 diabetes mellitus with diabetic nephropathy; E11.319 Type 2 diabetes mellitus with unspecified diabetic retinopathy without macular edema; I25.10 Atherosclerotic heart disease of native coronary artery without angina pectoris; M17.0 Bilateral primary osteoarthritis of knee; J44.9 Chronic obstructive pulmonary disease, unspecified; E78.5 Hyperlipidemia, unspecified; E11.42 Type 2 diabetes mellitus with diabetic polyneuropathy; I96 Gangrene, not elsewhere classified; Z85.038 Personal history of other malignant neoplasm of large intestine; Z79.4 Long term (current) use of insulin; Z99.2 Dependence on renal dialysis
CPT/HCPCS: 11042; 11045

== ENCOUNTER → 2018-03-08 | Outpatient (CLI) | payer MEDICARE, OTHER ==
[2018-03-08 10:29] VITALS: BP 162/79
== END | disposition home or self-care (01) ==
LOC: HBOWC 08:13
PROVIDERS: ATTEND Internal Medicine
DX: E11.621 Type 2 diabetes mellitus with foot ulcer (principal); L97.411 Non-pressure chronic ulcer of right heel and midfoot limited to breakdown of skin; E11.69 Type 2 diabetes mellitus with other specified complication; M86.671 Other chronic osteomyelitis, right ankle and foot; I25.10 Atherosclerotic heart disease of native coronary artery without angina pectoris; M17.0 Bilateral primary osteoarthritis of knee; J44.9 Chronic obstructive pulmonary disease, unspecified; E11.22 Type 2 diabetes mellitus with diabetic chronic kidney disease; I13.0 Hypertensive heart and chronic kidney disease with heart failure and stage 1 through stage 4 chronic kidney disease, or unspecified chronic kidney disease; I50.9 Heart failure, unspecified; N18.4 Chronic kidney disease, stage 4 (severe); E11.52 Type 2 diabetes mellitus with diabetic peripheral angiopathy with gangrene; I96 Gangrene, not elsewhere classified; E78.00 Pure hypercholesterolemia, unspecified; E11.21 Type 2 diabetes mellitus with diabetic nephropathy; E11.42 Type 2 diabetes mellitus with diabetic polyneuropathy; E11.319 Type 2 diabetes mellitus with unspecified diabetic retinopathy without macular edema; H54.7 Unspecified visual loss; Z85.038 Personal history of other malignant neoplasm of large intestine; Z99.2 Dependence on renal dialysis; Z79.4 Long term (current) use of insulin
CPT/HCPCS: 11042; 11045

== ENCOUNTER → 2018-03-15 | Outpatient (CLI) | payer MEDICARE, OTHER ==
[~2018-03-15] MED LIST changes: +CLOP75 PO; +FOLI0.8T22 PO; +FURO40 PO; +HYDR10TA31 PO; -LIDOCAINE HCL 2% 5 ML JELLY TP ONE; +LORA0.5T2 PO; +VITAD1000 PO; +ZARO2.5 PO
[2018-03-15 09:36] VITALS: BP 143/78
== END | disposition home or self-care (01) ==
LOC: HBOWC 08:43
PROVIDERS: ATTEND Internal Medicine
DX: E11.622 Type 2 diabetes mellitus with other skin ulcer (principal); L97.821 Non-pressure chronic ulcer of other part of left lower leg limited to breakdown of skin; L97.811 Non-pressure chronic ulcer of other part of right lower leg limited to breakdown of skin; E11.621 Type 2 diabetes mellitus with foot ulcer; L97.421 Non-pressure chronic ulcer of left heel and midfoot limited to breakdown of skin; I25.10 Atherosclerotic heart disease of native coronary artery without angina pectoris; E11.22 Type 2 diabetes mellitus with diabetic chronic kidney disease; I13.0 Hypertensive heart and chronic kidney disease with heart failure and stage 1 through stage 4 chronic kidney disease, or unspecified chronic kidney disease; N18.4 Chronic kidney disease, stage 4 (severe); I50.9 Heart failure, unspecified; E11.52 Type 2 diabetes mellitus with diabetic peripheral angiopathy with gangrene; I96 Gangrene, not elsewhere classified; E11.69 Type 2 diabetes mellitus with other specified complication; M86.671 Other chronic osteomyelitis, right ankle and foot; E78.00 Pure hypercholesterolemia, unspecified; E11.42 Type 2 diabetes mellitus with diabetic polyneuropathy; E78.5 Hyperlipidemia, unspecified; E11.65 Type 2 diabetes mellitus with hyperglycemia; M17.0 Bilateral primary osteoarthritis of knee; E46 Unspecified protein-calorie malnutrition; F41.3 Other mixed anxiety disorders; Z99.2 Dependence on renal dialysis; Z79.4 Long term (current) use of insulin; Z85.038 Personal history of other malignant neoplasm of large intestine
CPT/HCPCS: 11042; 11045